=== PATIENT | female | born 1965 | race African-American/Black ===

== ENCOUNTER 2019-09-09 23:38 | Emergency (ER) | payer OTHER ==
[2019-09-10 00:19] LABS: Absolute Lymphocytes (CBC) 2.2 K/uL (0.7-4.9); Basophils % 0.4 % (0-1.3); Hematocrit 35.7 % (36.0-45.0); Lymphocytes % 38.2 % (15.3-44.8); MPV 7.3 fL (7.6-11.3); RBC Red Blood Cell Count 5.24 M/uL (3.86-4.86)
[2019-09-10 00:21] LABS: Protime INR 0.97
[2019-09-10 00:39] LABS: ALT/SGPT 33 U/L (12-78); AST/SGOT 26 U/L (15-37); Albumin 3.1 g/dL (3.4-5.0); Alkaline Phosphatase 82 U/L (45-117); BUN Blood Urea Nitrogen 13 mg/dL (7-18); Bicarbonate 30 mmol/L (21-32); Bilirubin Direct < 0.1 mg/dL (0-0.2); Bilirubin Total 0.3 mg/dL (0.2-1.0); Glucose Level 97 mg/dL (74-106); Lipase 68 U/L (73-393); NT PRO-BNP 96 pg/mL (<125); Potassium 3.7 mmol/L (3.5-5.1); Protein, Total 8.1 g/dL (6.4-8.2); Sodium Level 139 mmol/L (136-145); Troponin (Emerg Dept Use Only) < 0.02 ng/mL (0.0-0.045)
[2019-09-10] MEDS ORDERED: MECLIZINE HCL 12.5 MG TAB ONE (00:40)
[2019-09-10] MEDS ORDERED: ONDANSETRON 4 MG/2 ML VIAL ONE (00:41)
[2019-09-10] MEDS ORDERED: AMLODIPINE 5 MG TAB ONE (00:41)
[2019-09-10 00:47] LABS: Urine Blood TRACE (NEG); Urine Glucose NEGATIVE (NEG); Urine Protein NEGATIVE (NEG)
--- NOTE | 2019-09-10 01:04 | EDPHYS ---
Physician Documentation [facility] Name: Sherrell Moseley Age: 54 yrs Sex: Female : 1965 Arrival Date: 09/09/2019 Time: 23:40 Bed 5 Private MD: ED Physician Giancarlo Whelan HPI: 09/10 00:24 This 54 yrs old Black Female presents to ER via Ambulatory with complaints of Nausea, franklin Vomiting, High Blood Pressure. 00:24 The patient presents to the emergency department with nausea, vomiting. franklin 00:24 The patient complains of pain to the forehead. The patient describes the headache as franklin aching. Onset: The symptoms/episode began/occurred 2 day(s) ago. Onset: The symptoms/episode began/occurred 1 day(s) ago. Possible causes: unknown. The patient presents with dizziness, lightheadedness. Modifying factors: The symptoms are alleviated by nothing, the symptoms are aggravated by nothing. 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 - Social history:: Smoking status: Patient/guardian denies using tobacco. - Ebola Screening: : No symptoms or risks identified at this time. - Family history:: not pertinent. ROS: 00:24 Constitutional: Negative for fever, chills, and weight loss, Eyes: Negative for injury, franklin pain, redness, and discharge, ENT: Negative for injury, pain, and discharge, Neck: Negative for injury, pain, and swelling, Cardiovascular: Negative for chest pain, palpitations, and edema, Respiratory: Negative for shortness of breath, cough, wheezing, and pleuritic chest pain, Abdomen/GI: Negative for abdominal pain, nausea, vomiting, diarrhea, and constipation, Back: Negative for injury and pain, : Negative for injury, bleeding, discharge, and swelling, MS/Extremity: Negative for injury and deformity, Skin: Negative for injury, rash, and discoloration, Psych: Negative for depression, anxiety, suicide ideation, homicidal ideation, and hallucinations, Allergy/Immunology: Negative for hives, rash, and allergies, Endocrine: Negative for neck swelling, polydipsia, polyuria, polyphagia, and marked weight changes, Hematologic/Lymphatic: Negative for swollen nodes, abnormal bleeding, and unusual bruising. 00:24 Neuro: Positive for dizziness, headache, weakness. Exam: 00:24 Constitutional: This is a well developed, well nourished patient who is awake, alert, franklin and in no acute distress. Head/Face: Normocephalic, atraumatic. Eyes: Pupils equal round and reactive to light, extra-ocular motions intact. Lids and lashes normal. Conjunctiva and sclera are non-icteric and not injected. Cornea within normal limits. Periorbital areas with no swelling, redness, or edema. ENT: Nares patent. No nasal discharge, no septal abnormalities noted. Tympanic membranes are normal and external auditory canals are clear. Oropharynx with no redness, swelling, or masses, exudates, or evidence of obstruction, uvula midline. Mucous membranes moist. Neck: Trachea midline, no thyromegaly or masses palpated, and no cervical lymphadenopathy. Supple, full range of motion without nuchal rigidity, or vertebral point tenderness. No Meningismus. Chest/axilla: Normal chest wall appearance and motion. Nontender with no deformity. No lesions are appreciated. Cardiovascular: Regular rate and rhythm with a normal S1 and S2. No gallops, murmurs, or rubs. Normal PMI, no JVD. No pulse deficits. Respiratory: Lungs have equal breath sounds bilaterally, clear to auscultation and percussion. No rales, rhonchi or wheezes noted. No increased work of breathing, no retractions or nasal flaring. Abdomen/GI: Soft, non-tender, with normal bowel sounds. No distension or tympany. No guarding or rebound. No evidence of tenderness throughout. Back: No spinal tenderness. No costovertebral tenderness. Full range of motion. Skin: Warm, dry with normal turgor. Normal color with no rashes, no lesions, and no evidence of cellulitis. MS/ Extremity: Pulses equal, no cyanosis. Neurovascular intact. Full, normal range of motion. Neuro: Awake and alert, GCS 15, oriented to person, place, time, and situation. Cranial nerves II-XII grossly intact. Motor strength 5/5 in all extremities. Sensory grossly intact. Cerebellar exam normal. Normal gait. Psych: Awake, alert, with orientation to person, place and time. Behavior, mood, and affect are within normal limits. Vital Signs: 00:04 BP 180 / 95; Pulse 81; Resp 16; Temp 98.1; Pulse Ox 100% on R/A; Weight 104.33 kg (R); ak1 Height 5 ft. 2 in. (157.48 cm) (R); Pain 11/17; 01:08 BP 156 / 78; Pulse 68; Resp 14; Pulse Ox 99% on R/A; ak1 01:11 BP 139 / 68; Pulse 77; Resp 16; Pulse Ox 100% on R/A; ak1 00:04 Body Mass Index 42.07 (104.33 kg, 157.48 cm) [facility] MDM: 09/09 23:57 Patient medically screened. [facility] 09/10 00:25 Data reviewed: vital signs, nurses notes, lab test result(s), EKG, radiologic studies, [facility] CT scan, plain films. 09/09 23:58 Order name: Basic Metabolic Panel; Complete Time: 00:46 [facility] 09/09 23:58 Order name: CBC with Diff; Complete Time: 00:46 [facility] 09/09 23:58 Order name: LFT's; Complete Time: 00:46 [facility] 09/09 23:58 Order name: Magnesium; Complete Time: 00:46 [facility] 09/09 23:58 Order name: NT PRO-BNP; Complete Time: 00:46 [facility] 09/09 23:58 Order name: PT-INR; Complete Time: 00:46 [facility] 09/09 23:58 Order name: Troponin (emerg Dept Use Only); Complete Time: 00:46 [facility] 09/09 23:58 Order name: XRAY Chest (1 view) [facility] 09/09 23:58 Order name: Lipase; Complete Time: 00:46 [facility] 09/10 00:29 Order name: Urine Dipstick--Ancillary (enter results); Complete Time: 01:34 [facility] 09/10 00:29 Order name: Urine --Ancillary (enter results); Complete Time: 01:34 [facility] 09/09 23:58 Order name: EKG; Complete Time: 23:59 [facility] 09/09 23:58 Order name: Cardiac monitoring; Complete Time: 00:18 [facility] 09/09 23:58 Order name: EKG - Nurse/Tech; Complete Time: 00:18 [facility] 09/09 23:58 Order name: IV Saline Lock; Complete Time: 00:18 [facility] 09/09 23:58 Order name: Labs collected and sent; Complete Time: 00:18 [facility] 09/09 23:58 Order name: O2 Per Protocol; Complete Time: 00:06 [facility] 09/09 23:58 Order name: O2 Sat Monitoring; Complete Time: 00: [facility] 09/09 23:58 Order name: Urine Dipstick-Ancillary (obtain specimen); Complete Time: 00:18 [facility] Administered Medications: 00:44 Drug: Norvasc 5 mg Route: PO; ak1 00:44 Follow up: Response: No adverse reaction ak1 00:44 Drug: Meclizine 25 mg Route: PO; ak1 01:26 Follow up: Response: No adverse reaction ak1 00:44 Drug: Zofran 4 mg Route: IVP; Site: right antecubital; ak1 01:26 Follow up: Response: No adverse reaction ak1 Disposition: 09/10/19 01:02 Discharged to Home. Impression: Headache, Dizziness and giddiness, Essential (primary) hypertension. - Condition is Stable. - Discharge Instructions: Dizziness, General Headache Without Cause, Hypertension, Hypertension, Rerb-rp-Aldn, General Headache Without Cause, Ocok-sh-Lzre, Dizziness, Oeqy-dy-Uiik. - Prescriptions for Meclizine 25 mg Oral Tablet - take 1 tablet by ORAL route every 8 hours As needed; 30 tablet. Norvasc 5 mg Oral Tablet - take 1 tablet by ORAL route once daily; 20 tablet. Zofran 4 mg Oral Tablet - take 1 tablet by ORAL route every 12 hours As needed; 20 tablet. - Medication Reconciliation Form, Thank You Letter, Antibiotic Education, Prescription Opioid Use form. - Follow up: Private Physician; When: 2 - 3 days; Reason: Recheck today's complaints, Continuance of care, Re-evaluation by your physician. - Problem is new. - Symptoms have improved. Signatures: Dispatcher [employer] EDGiancarlo Benitez MD MD cha Krenek, Amber, RN RN ak1 Corrections: (The following items were deleted from the chart) 01:12 01:02 09/10/2019 01:02 Discharged to Home. Impression: Headache; Dizziness and ak1 giddiness; Essential (primary) hypertension. Condition is Stable. Discharge Instructions: Dizziness, General Headache Without Cause, General Headache Without Cause, Eycg-gc-Qkmr, Dizziness, Udpd-qe-Apcy, Hypertension, Hypertension, Lulr-zg-Xjfr. Prescriptions for Meclizine 25 mg Oral Tablet - take 1 tablet by ORAL route every 8 hours As needed; 30 tablet, Norvasc 5 mg Oral Tablet - take 1 tablet by ORAL route once daily; 20 tablet, Zofran 4 mg Oral Tablet - take 1 tablet by ORAL route every 12 hours As needed; 20 tablet. and Forms are Medication Reconciliation Form, Thank You Letter, Antibiotic Education, Prescription Opioid Use. Follow up: Private Physician; When: 2 - 3 days; Reason: Recheck today's complaints, Continuance of care, Re-evaluation by your physician. Problem is new. Symptoms have improved. franklin
--- NOTE | 2019-09-10 01:04 | ER ---
Nurse's Notes [facility] Name: Sherrell Moseley Age: 54 yrs Sex: Female : 1965 Arrival Date: 09/09/2019 Time: 23:40 Bed 5 Private MD: Diagnosis: Headache;Dizziness and giddiness;Essential (primary) hypertension Presentation: 09/10 00:02 Presenting complaint: Patient states: epigastric pain with nausea and vomiting. pt ak1 increased blood pressure at home yesterday after speaking with [facility] about her father. Transition of care: patient was not received from another setting of care. Onset of symptoms is unknown. Risk Assessment: Do you want to hurt yourself or someone else? Patient reports no desire to harm self or others. Initial Sepsis Screen: Does the patient meet any 2 criteria? No. Patient's initial sepsis screen is negative. Does the patient have a suspected source of infection? No. Patient's initial sepsis screen is negative. Care prior to arrival: None. 00:02 Method Of Arrival: Ambulatory ak1 00:02 Acuity: SARATH 3 ak1 Triage Assessment: 00:04 General: Appears in no apparent distress. Behavior is calm, cooperative. Pain: ak1 Complains of pain in epigastric area. EENT: No signs and/or symptoms were reported regarding the EENT system. Neuro: No deficits noted. Cardiovascular: No deficits noted. Respiratory: No deficits noted. GI: Abdomen is round non-distended, Bowel sounds present X 4 quads. Reports upper abdominal pain, nausea, vomiting. : No signs and/or symptoms were reported regarding the genitourinary system. Derm: No signs and/or symptoms reported regarding the dermatologic system. Musculoskeletal: No signs and/or symptoms reported regarding the musculoskeletal system. 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 - Social history:: Smoking status: Patient/guardian denies using tobacco. - Ebola Screening: : No symptoms or risks identified at this time. - Family history:: not pertinent. Screenin:05 Abuse screen: Denies threats or abuse. Denies injuries from another. Nutritional ak1 screening: No deficits noted. Tuberculosis screening: No symptoms or risk factors identified. Fall Risk None identified. Assessment: 00:17 Reassessment: Patient appears in no apparent distress at this time. Patient and/or ak1 family updated on plan of care and expected duration. Pain level reassessed. Patient is alert, oriented x 3, equal unlabored respirations, skin warm/dry/pink. see triage assessment. General: Appears in no apparent distress. Behavior is calm, cooperative. 01:09 Reassessment: Patient appears in no apparent distress at this time. Patient and/or ak1 family updated on plan of care and expected duration. Pain level reassessed. Patient is alert, oriented x 3, equal unlabored respirations, skin warm/dry/pink. Patient denies pain at this time. Patient states feeling better. Vital Signs: 00:04 BP 180 / 95; Pulse 81; Resp 16; Temp 98.1; Pulse Ox 100% on R/A; Weight 104.33 kg (R); ak1 Height 5 ft. 2 in. (157.48 cm) (R); Pain /10; 01:08 BP 156 / 78; Pulse 68; Resp 14; Pulse Ox 99% on R/A; ak1 01:11 BP 139 / 68; Pulse 77; Resp 16; Pulse Ox 100% on R/A; ak1 00:04 Body Mass Index 42.07 (104.33 kg, 157.48 cm) ak1 ED Course: 09/09 23:40 Patient arrived in ED. cl3 23:57 Giancarlo Whelan MD is Attending Physician. franklin 09/10 00:02 Karen Fang, JOHNNY is Primary Nurse. ak1 00:04 Triage completed. ak1 00:04 Arm band placed on Patient placed in an exam room, on a stretcher, Patient notified of ak1 wait time. 00:05 Patient has correct armband on for positive identification. Bed in low position. Call ak1 light in reach. Side rails up X 1. Pulse ox on. NIBP on. 00:16 Initial lab(s) drawn, by ED staff, sent to lab. Urine collected: clean catch specimen, ak1 EKG done, reviewed by Giancarlo Whelan MD. Inserted saline lock: 22 gauge in right antecubital area, using aseptic technique. ,using aseptic technique. KJ technical artist Blood collected. 00:41 XRAY Chest (1 view) In Process Unspecified. EDMS 01:11 No provider procedures requiring assistance completed. IV discontinued, intact, ak1 bleeding controlled, No redness/swelling at site. Pressure dressing applied. Administered Medications: 00:44 Drug: Norvasc 5 mg Route: PO; ak1 00:44 Follow up: Response: No adverse reaction ak1 00:44 Drug: Meclizine 25 mg Route: PO; ak1 01:26 Follow up: Response: No adverse reaction ak1 00:44 Drug: Zofran 4 mg Route: IVP; Site: right antecubital; ak1 01:26 Follow up: Response: No adverse reaction ak1 Outcome: 01:02 Discharge ordered by . franklin 01:11 Discharged to home ambulatory, with family. ak1 01:11 Condition: good 01:11 Discharge instructions given to patient, Instructed on discharge instructions, follow up and referral plans. medication usage, Demonstrated understanding of instructions, follow-up care, medications, Prescriptions given X 3. 01:12 Patient left the ED. ak1 Signatures: Dispatcher [employer] Giancarlo Sharma MD MD cha Krenek, Amber, RN RN [email or web address] Octaviano Little cl3
[2019-09-10 01:52] VITALS: BP 180/95; TEMP 98.1; O2SAT 100
--- NOTE | 2019-09-10 06:23 | EKG ---
Test Date: 2019-09-10 Test Time: 00:11:17 Recovery Operator: JAVIER MEASUREMENT RESULTS: Intervals: Rate: 69 MI: 154 QRSD: 92 QT: 400 QTc: 428 Manning: P: 63 MI: 154 QRS: 17 T: 49 INTERPRETIVE STATEMENTS: Normal sinus rhythm with sinus arrhythmia Normal ECG Compared to ECG 04/24/2011 13:32:06 Prolonged QT interval no longer present Electronically Signed On 09-10-19 06:22:21 CLINICAL ASSISTANT by Samy Coyle
--- NOTE | 2019-09-10 11:46 | RAD REPORT ---
EXAM DESCRIPTION: RAD - Chest Single View - 09/10/2019 12:42 am CLINICAL HISTORY: COUGH Chest pain. COMPARISON: Head Brain Wo Cont dated 05/13/2016No comparisonsNo comparisons FINDINGS: Portable technique limits examination quality. The lungs are grossly clear. The heart is mildly prominent in size. No displaced fractures. IMPRESSION: No acute intrathoracic process suspected.
== END 2019-09-10 01:12 | disposition home or self-care (01) ==
LOC: ER 23:38
DX: R42 Dizziness and giddiness (principal); R51 Headache; I10 Essential (primary) hypertension
CPT/HCPCS: 93005; 85025; 80048; 36415; 83735; 81025; 85610; 80076; 81003; 84484; 83690; 83880; 71045; 96374; 99284; J8597; J2405

== ENCOUNTER 2020-01-16 10:37 | Emergency (ER) | payer OTHER ==
[2020-01-16] MEDS ORDERED: ONDANSETRON 4 MG/2 ML VIAL ONE (11:46)
[2020-01-16] MEDS ORDERED: MORPHINE 4 MG/ML SYR ONE (11:46)
[2020-01-16] MEDS ORDERED: FAMOTIDINE 20 MG/2 ML VIAL IV ONE (11:46)
[2020-01-16] MEDS ORDERED: NA CHLORIDE 0.9% 1,000 ML ONE (11:46)
[2020-01-16 11:47] LABS: Absolute Lymphocytes (CBC) 1.4 K/uL (0.7-4.9); Basophils % 0.8 % (0-1.3); Hematocrit 39.5 % (36.0-45.0); Lymphocytes % 26.6 % (15.3-44.8); MPV 6.8 fL (7.6-11.3); RBC Red Blood Cell Count 5.78 M/uL (3.86-4.86)
[2020-01-16 12:03] LABS: Albumin 3.5 g/dL (3.4-5.0); Bilirubin Direct 0.1 mg/dL (0-0.2); Bilirubin Total 0.3 mg/dL (0.2-1.0); Protein, Total 9.4 g/dL (6.4-8.2)
--- NOTE | 2020-01-16 12:37 | RAD REPORT ---
EXAM DESCRIPTION: CTAbdomen Pelvis W Contrast - 01/16/2020 12:25 pm CLINICAL HISTORY: Abdominal pain. ABD PAIN COMPARISON: No comparisons TECHNIQUE: Biphasic CT imaging of the abdomen and pelvis was performed with 100 ml non-ionic IV cont rast. All CT scans are performed using dose optimization technique as appropriate and may include automated exposure control or mA/KV adjustment according to patient size. FINDINGS: The lung bases are clear. The liver, spleen, pancreas, left adrenal gland and left kidney are within normal limits. 27 mm cyst is seen anterior superior right kidney. 19 mm right adrenal mass is present. No bowel obstruction, free air, free fluid or abscess. The appendix is normal. No evidence of signi ficant lymphadenopathy. Moderate lumbosacral degenerative changes. IMPRESSION: No acute intra-abdominal or pelvic finding. 19 mm right adrenal mass is nonspecific but probably an adenoma. Nonemergent followup MR adrenal prot ocol could be performed for further evaluation.
--- NOTE | 2020-01-16 13:04 | ER ---
Nurse's Notes [facility] Name: Sherrell Moseley Age: 55 yrs Sex: Female : 1965 Arrival Date: 01/16/2020 Time: 10:39 Bed 6 Private MD: Diagnosis: Abdominal tenderness;Functional dyspepsia Presentation: 01/15 11:07 Chief complaint: Patient states: epigastric, LUQ pain, dizziness, mid left back pain x sv 3 days. Coronavirus screen: The patient has NOT traveled to a country currently being monitored by the [facility] within the last 14 days. Proceed with normal triage procedures. The patient has NOT had contact with any known and/or suspected case of coronavirus. Proceed with normal triage procedures. Ebola Screen: No symptoms or risks identified at this time. Initial Sepsis Screen: Does the patient meet any 2 criteria? No. Patient's initial sepsis screen is negative. Does the patient have a suspected source of infection? No. Patient's initial sepsis screen is negative. Risk Assessment: Do you want to hurt yourself or someone else? Patient reports no desire to harm self or others. 11:07 Method Of Arrival: Ambulatory sv 11:07 Acuity: SARATH 3 sv Triage Assessment: 11:10 General: Appears in no apparent distress. uncomfortable, well groomed, well developed, sv Behavior is calm, cooperative, appropriate for age. Pain: Complains of pain in epigastric area and left upper quadrant Pain radiates to left mid back Pain currently is 6 out of 10 on a pain scale. Quality of pain is described as pressure, Pain began 2-3 days ago. Is continuous. Neuro: Level of Consciousness is awake, alert, obeys commands, Oriented to person, place, time, situation, Moves all extremities. Full function Gait is steady. Neuro: Reports dizziness. Respiratory: Airway is patent Respiratory effort is even, unlabored, Respiratory pattern is regular, symmetrical. GI: Abdomen is obese, Reports nausea. Derm: Skin is intact, Skin is pink, warm \T\ dry. Musculoskeletal: Range of motion: intact in all extremities. Historical: - Allergies: 11:08 No Known Allergies; sv - PMHx: 11:08 Hypertension; sv - PSHx: 11:08 None; sv - Immunization history:: Adult Immunizations up to date, Flu vaccine is not up to date. - Social history:: Smoking status: Patient denies any tobacco usage or history of. Screenin:09 Abuse screen: Denies threats or abuse. Denies injuries from another. Nutritional sv screening: No deficits noted. Tuberculosis screening: No symptoms or risk factors identified. Fall Risk None identified. Assessment: 11:42 Reassessment: Patient appears in no apparent distress at this time. No changes from sv previously documented assessment. Patient and/or family updated on plan of care and expected duration. Pain level reassessed. Patient is alert, oriented x 3, equal unlabored respirations, skin warm/dry/pink. 12:50 Reassessment: Patient appears in no apparent distress at this time. No changes from sv previously documented assessment. Patient and/or family updated on plan of care and expected duration. Pain level reassessed. Patient is alert, oriented x 3, equal unlabored respirations, skin warm/dry/pink. 14:00 Reassessment: Patient appears in no apparent distress at this time. Patient and/or sv family updated on plan of care and expected duration. Pain level reassessed. Patient is alert, oriented x 3, equal unlabored respirations, skin warm/dry/pink. Vital Signs: 11:07 BP 133 / 72; Pulse 70; Resp 18; Temp 97.6; Pulse Ox 98% ; Weight 106.59 kg; Height 5 sv ft. 2 in. (157.48 cm); Pain 6/10; 11:07 Body Mass Index 42.98 (106.59 kg, 157.48 cm) sv ED Course: 10:39 Patient arrived in ED. rg4 11:01 Sarah Tripp RN is Primary Nurse. sv 11:02 Giancarlo Whelan MD is Attending Physician. [facility] 11:08 Triage completed. sv 11:08 Arm band placed on Patient placed in an exam room, on a stretcher. sv 11:09 Awaiting ED provider evaluation. sv 11:09 Patient has correct armband on for positive identification. Bed in low position. Call sv light in reach. Pulse ox on. NIBP on. Door closed. Head of bed elevated. 11:35 Inserted saline lock: 20 gauge in right antecubital area, using aseptic technique. sv Blood collected. Flushed right antecubital with 5 ml normal saline. 12:27 CT Abd/Pelvis - IV Contrast Only In Process Unspecified. EDMS 13:03 Debra Soliz MD is Referral Physician. [facility] 14:03 No provider procedures requiring assistance completed. IV discontinued, intact, em bleeding controlled, No redness/swelling at site. Pressure dressing applied. Administered Medications: 11:42 Drug: Pepcid 20 mg Route: IVP; Site: right antecubital; sv 12:30 Follow up: Response: No adverse reaction sv 11:42 Drug: NS 0.9% 1000 ml Route: IV; Rate: 1 bolus; Site: right antecubital; sv 11:44 Drug: Zofran (Ondansetron) 4 mg Route: IVP; Site: right antecubital; sv 12:30 Follow up: Response: No adverse reaction sv 11:46 Drug: morphine 4 mg {Note: RASS1.} Route: IVP; Site: right antecubital; sv 12:30 Follow up: Response: No adverse reaction; Marked relief of symptoms; Pain is decreased; sv RASS: Alert and Calm (0) Outcome: 13:03 Discharge ordered by . [facility] 14:03 Discharged to home ambulatory, with family. em 14:03 Condition: good 14:03 Discharge instructions given to patient, family, Instructed on discharge instructions, follow up and referral plans. medication usage, Demonstrated understanding of instructions, follow-up care, medications, Prescriptions given X 3. 14:04 Patient left the ED. em Signatures: Dispatcher [employer] Sarah Garibay, Giancarlo Strong RN, MD MD cha Munoz, Edgar, RN RN em Garcia, Rubi rg4
--- NOTE | 2020-01-16 13:05 | EDPHYS ---
Physician Documentation [facility] Name: Sherrell Moseley Age: 55 yrs Sex: Female : 1965 Arrival Date: 01/16/2020 Time: 10:39 Bed 6 Private MD: ED Physician Giancarlo Whelan HPI: 01/15 11:38 This 55 yrs old Black Female presents to ER via Ambulatory with complaints of Upper Abd franklin Pain, Back Pain. 11:38 The patient presents with pain that is acute. The symptoms are located in the lumbar franklin area and right mid back. Onset: The symptoms/episode began/occurred 2 day(s) ago. Historical: - Allergies: 11:08 No Known Allergies; sv - PMHx: 11:08 Hypertension; sv - PSHx: 11:08 None; sv - Immunization history:: Adult Immunizations up to date, Flu vaccine is not up to date. - Social history:: Smoking status: Patient denies any tobacco usage or history of. ROS: 11:38 Constitutional: Negative for fever, chills, and weight loss, Eyes: Negative for injury, franklin pain, redness, and discharge, ENT: Negative for injury, pain, and discharge, Neck: Negative for injury, pain, and swelling, Cardiovascular: Negative for chest pain, palpitations, and edema, Respiratory: Negative for shortness of breath, cough, wheezing, and pleuritic chest pain, Back: Negative for injury and pain, : Negative for injury, bleeding, discharge, and swelling, MS/Extremity: Negative for injury and deformity, Skin: Negative for injury, rash, and discoloration, Neuro: Negative for headache, weakness, numbness, tingling, and seizure, Psych: Negative for depression, anxiety, suicide ideation, homicidal ideation, and hallucinations, Allergy/Immunology: Negative for hives, rash, and allergies, Endocrine: Negative for neck swelling, polydipsia, polyuria, polyphagia, and marked weight changes, Hematologic/Lymphatic: Negative for swollen nodes, abnormal bleeding, and unusual bruising. 11:38 Abdomen/GI: Positive for abdominal pain, of the epigastric area and left upper quadrant. Exam: 11:38 Constitutional: This is a well developed, well nourished patient who is awake, alert, franklin and in no acute distress. Head/Face: Normocephalic, atraumatic. Eyes: Pupils equal round and reactive to light, extra-ocular motions intact. Lids and lashes normal. Conjunctiva and sclera are non-icteric and not injected. Cornea within normal limits. Periorbital areas with no swelling, redness, or edema. ENT: Nares patent. No nasal discharge, no septal abnormalities noted. Tympanic membranes are normal and external auditory canals are clear. Oropharynx with no redness, swelling, or masses, exudates, or evidence of obstruction, uvula midline. Mucous membranes moist. Neck: Trachea midline, no thyromegaly or masses palpated, and no cervical lymphadenopathy. Supple, full range of motion without nuchal rigidity, or vertebral point tenderness. No Meningismus. Chest/axilla: Normal chest wall appearance and motion. Nontender with no deformity. No lesions are appreciated. Cardiovascular: Regular rate and rhythm with a normal S1 and S2. No gallops, murmurs, or rubs. Normal PMI, no JVD. No pulse deficits. Respiratory: Lungs have equal breath sounds bilaterally, clear to auscultation and percussion. No rales, rhonchi or wheezes noted. No increased work of breathing, no retractions or nasal flaring. Back: No spinal tenderness. No costovertebral tenderness. Full range of motion. Female : Normal external genitalia. Skin: Warm, dry with normal turgor. Normal color with no rashes, no lesions, and no evidence of cellulitis. MS/ Extremity: Pulses equal, no cyanosis. Neurovascular intact. Full, normal range of motion. Neuro: Awake and alert, GCS 15, oriented to person, place, time, and situation. Cranial nerves II-XII grossly intact. Motor strength 5/5 in all extremities. Sensory grossly intact. Cerebellar exam normal. Normal gait. Psych: Awake, alert, with orientation to person, place and time. Behavior, mood, and affect are within normal limits. 11:38 Abdomen/GI: Inspection: abdomen appears normal, Bowel sounds: active, Palpation: moderate abdominal tenderness, in the epigastric area and left upper quadrant, Liver: no appreciated palpable abnormalities, Hernia: not appreciated. Vital Signs: 11:07 BP 133 / 72; Pulse 70; Resp 18; Temp 97.6; Pulse Ox 98% ; Weight 106.59 kg; Height 5 sv ft. 2 in. (157.48 cm); Pain /; 11:07 Body Mass Index 42.98 (106.59 kg, 157.48 cm) sv MDM: 11:02 Patient medically screened. [facility] 11:40 Data reviewed: vital signs, nurses notes, lab test result(s), EKG, radiologic studies, franklin CT scan. 01/15 11:31 Order name: Basic Metabolic Panel; Complete Time: 12:10 01/15 11:31 Order name: CBC with Diff sv 01/15 11:31 Order name: Creatinine for Radiology; Complete Time: 12:10 01/15 11:31 Order name: Hepatic Function; Complete Time: 12:10 01/15 11:31 Order name: Lipase; Complete Time: 12:10 01/15 13:19 Order name: CBC Smear Scan EDMS 01/15 11:31 Order name: IV Saline Lock; Complete Time: 19:16 01/15 11:31 Order name: Labs collected and sent; Complete Time: 19:16 01/15 11:38 Order name: CT Abd/Pelvis - IV Contrast Only; Complete Time: 12:46 [facility] 01/15 11:38 Order name: EKG; Complete Time: 11:39 [facility] 01/15 11:38 Order name: EKG - Nurse/Tech; Complete Time: 19:17 [facility] Administered Medications: 11:42 Drug: Pepcid 20 mg Route: IVP; Site: right antecubital; sv 12:30 Follow up: Response: No adverse reaction sv 11:42 Drug: NS 0.9% 1000 ml Route: IV; Rate: 1 bolus; Site: right antecubital; sv 11:44 Drug: Zofran (Ondansetron) 4 mg Route: IVP; Site: right antecubital; sv 12:30 Follow up: Response: No adverse reaction sv 11:46 Drug: morphine 4 mg {Note: RASS1.} Route: IVP; Site: right antecubital; sv 12:30 Follow up: Response: No adverse reaction; Marked relief of symptoms; Pain is decreased; sv RASS: Alert and Calm (0) Disposition: 01/16/20 13:03 Discharged to Home. Impression: Abdominal tenderness, Functional dyspepsia. - Condition is Stable. - Discharge Instructions: Abdominal Pain, Adult, Abdominal Pain, Adult, [id number]. - Prescriptions for Bentyl 20 mg Oral Tablet - take 1 tablet by ORAL route every 6 hours As needed; 20 tablet. Protonix 40 mg Oral Tablet - take 1 tablet by ORAL route once daily; 30 tablet. Zofran 4 mg Oral Tablet - take 1 tablet by ORAL route every 12 hours As needed; 20 tablet. - Medication Reconciliation Form, Thank You Letter, Antibiotic Education, Prescription Opioid Use, Work release form form. - Follow up: Private Physician; When: 2 - 3 days; Reason: Recheck today's complaints, Continuance of care, Re-evaluation by your physician. Follow up: Debra Soliz MD; When: 2 - 3 days; Reason: Recheck today's complaints, Continuance of care, Re-evaluation by your physician. - Problem is new. - Symptoms have improved. Signatures: Dispatcher [employer] Sarah Garibay, JOHNNY RN Giancarlo Welsh MD MD cha Munoz, Edgar, RN RN em Corrections: (The following items were deleted from the chart) 14:04 13:03 01/16/2020 13:03 Discharged to Home. Impression: Abdominal tenderness; Functional em dyspepsia. Condition is Stable. Forms are Medication Reconciliation Form, Thank You Letter, Antibiotic Education, Prescription Opioid Use. Follow up: Private Physician; When: 2 - 3 days; Reason: Recheck today's complaints, Continuance of care, Re-evaluation by your physician. Follow up: Debra Soliz; When: 2 - 3 days; Reason: Recheck today's complaints, Continuance of care, Re-evaluation by your physician. Problem is new. Symptoms have improved. franklin
[2020-01-16 13:18] LABS: Platelet Estimate ADEQ; Urine White Blood Cell Casts OK
[2020-01-16 13:19] LABS: Anisocytosis 1+; Blood Morphology Comment NOTED (NOT SEEN); Hypochromasia 1+
[2020-01-16 14:14] VITALS: BP 133/72; TEMP 97.6; O2SAT 98
--- NOTE | 2020-01-16 15:30 | EKG ---
Test Date: 2020-01-16 Test Time: 12:01:01 Wound Care Coordinator: GIRMA MEASUREMENT RESULTS: Intervals: Rate: 66 VA: 174 QRSD: 104 QT: 432 QTc: 452 Lafferty: P: 45 VA: 174 QRS: 21 T: 40 INTERPRETIVE STATEMENTS: Normal sinus rhythm Normal ECG Compared to ECG 09/10/2019 00:11:17 Sinus arrhythmia no longer present Electronically Signed On 01-16-20 15:28:48 CDT by Lusi Eduardo Rubio
== END 2020-01-16 14:04 | disposition home or self-care (01) ==
LOC: ER 10:37
DX: K30 Functional dyspepsia (principal); R10.819 Abdominal tenderness, unspecified site
CPT/HCPCS: 93005; 85025; 80048; 36415; 80076; 83690; 74177; 96375; 96374; 99284; Q9967; J7030; J2405